=== PATIENT | female | born 1990 | race Asian ===

== ENCOUNTER 2018-05-10 05:17 | Emergency (ER) | payer OTHER ==
[2018-05-10] MEDS ORDERED: Albuterol Sulfate 2.5 mg/3 ml Neb ONE (05:46)
[2018-05-10] MEDS ORDERED: predniSONE 20 MG TAB ONE (05:46)
--- NOTE | 2018-05-10 08:02 | RAD ---
PORTABLE CHEST: HISTORY: Dyspnea. FINDINGS: The lungs are clear. No infiltrate. The heart and mediastinum appear normal. IMPRESSION: No acute finding. POS: [id number]
== END 2018-05-10 06:54 | disposition home or self-care (01) ==
LOC: ERS 05:17
DX: J45.901 Unspecified asthma with (acute) exacerbation (principal); Z79.51 Long term (current) use of inhaled steroids
CPT/HCPCS: 71045; 94640; J7611; J7620